=== PATIENT | male | born 1990 | race Caucasian/White ===

== ENCOUNTER → 2017-02-06 | Outpatient (CLI) | payer BC ==
[~2017-02-06] MED LIST: CETI10TA84 PO; ESCI10TA17 PO; FLUT0.15 NAE; ZNTT/150 PO
--- NOTE | 2017-02-06 17:35 | DIAGNOSTIC IMAGING REPORT ---
KUB CLINICAL HISTORY: Abdominal bloating. FINDINGS: 3 AP supine abdominal radiographs are obtained. No prior studies are available for comparison at the time of dictation. There is a nonobstructed abdominal bowel gas pattern. Mild colonic fecal retention is observed. There are no abnormal abdominal calcifications. The bony structures appear intact. IMPRESSION: Nonobstructed abdominal bowel gas pattern. Electronically signed by: Ritchie Franco M.D. 02/06/2017 5:33 PM Dictated Date/Time: 02/06/2017 5:30 PM
[2017-02-06 18:00] LABS: BASO % 0.4 %; BASO ABS # 0.03 K/uL (0-0.2); COMPLETE YES; HEMATOCRIT 46.4 % (42-52); IG% 0.1 %; LYMPH % 34.2 %; LYMPH ABS # 2.69 K/uL (1.2-3.4); MEAN CELL VOLUME 87.5 fL (80-100); MEAN CORPUSCULAR HEMOGLOBIN 29.2 pg (25-34); MEAN CORPUSCULAR HGB CONC 33.4 g/dl (32-36); MONO % 8.9 %; NEUT % 55.4 %; PLATELET COUNT 232 K/uL (130-400); WHITE BLOOD COUNT 7.87 K/uL (4.8-10.8)
[2017-02-06 18:04] LABS: URINE APPEARANCE CLEAR (CLEAR); URINE BILIRUBIN NEG (NEG); URINE COLOR YELLOW; URINE NITRITE NEG (NEG); URINE PH 6.5 (4.5-7.5); URINE SPECIFIC GRAVITY 1.034 (1.000-1.030); UROBILINOGEN NEG (NEG)
[2017-02-06 18:07] LABS: MANUAL MICROSCOPIC REQUIRED? NO; REVIEW REQ? NO
[2017-02-06 18:25] LABS: ALT/SGPT 89 U/L (12-78); AST/SGOT 30 U/L (15-37); BLOOD UREA NITROGEN 23 mg/dl (7-18); BUN/CREATININE RATIO 23.5 (10-20); CALCIUM 9.9 mg/dl (8.5-10.1); CARBON DIOXIDE 28 mmol/L (21-32); CHLORIDE 109 mmol/L (98-107); GLUCOSE 90 mg/dl (70-99); POTASSIUM 3.9 mmol/L (3.5-5.1); SODIUM 142 mmol/L (136-145)
[2017-02-06 18:27] LABS: ALB/GLOB RATIO 1.4 (0.9-2); ALKALINE PHOSPHATASE 73 U/L (45-117)
== END | disposition home or self-care (01) ==
LOC: C.LAB 17:01
PROVIDERS: ATTEND Nurse Practitioner
DX: R14.0 Abdominal distension (gaseous) (principal)

== ENCOUNTER 2017-02-16 19:00 | Emergency (ER) | payer BC ==
[~2017-02-16] VITALS: Ht 185.4 cm; Wt 124.7 kg
[~2017-02-16 19:00] MED LIST changes: -ESCI10TA17 PO; -ZNTT/150 PO
[2017-02-16 19:02] VITALS: TEMP 36.6; O2SAT 97; Ht 185.4 cm; Wt 124.7 kg
--- NOTE | 2017-02-16 19:25 | EMERGENCY ROOM VISIT NOTE ---
History Report prepared by Aguilaribchristina: Shaye Enriquez Under the Supervision of: Dr. Rakan Gonzales M.D. First contact with patient: 19:06 Chief Complaint: CHEST PAIN Stated Complaint: CHEST PAINS, GI ISSUES History of Present Illness The patient is a 27 year old male who presents to the Emergency Room with complaints of intermittent chest pain for the past day. He rates his discomfort as a 3/10 and describes it as feeling like an "ache". He has experienced some dizziness but denies any recent syncope or loss of consciousness. He also complains of GI issues reporting he was constipated last week, but has now been having diarrhea and experiencing bloating and a feeling of being "gassy'. The patient denies any recent fevers, cough or cold symptoms, nausea or vomiting. He notes he did have mono last fall and states his symptoms feel similar to the mono. He also admits he has been very fatigued recently. The patient denies any recent trauma or injury. He has not traveled recently or been on any long car trips. 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 Source of History: patient Onset: past day Position: chest Symptom Intensity: 3/10 Quality: ache Timing: other (intermittent) Associated Symptoms: + diarrhea, + fatigue, No LOC, No fevers, No cough ( cough or cold symptoms), No nausea, No vomiting Review of Systems See HPI for pertinent positives & negatives. A total of 10 systems reviewed and were otherwise negative. Past Medical & Surgical Medical Problems: (1) Kidney disease Old medical records were reviewed. Nurse's notes were reviewed and I agree with. Family History FH: diabetes mellitus FH: hypertension Social History Smoking Status: Never Smoker Alcohol Use: occasionally Drug Use: none Marital Status: Housing Status: lives with family Occupation Status: employed Current/Historical Medications No Active Prescriptions or Reported Meds Allergies Coded Allergies: No Known Allergies (Unverified , 02/16/17) Physical Exam Vital Signs Date Time Temp Pulse Resp B/P (MAP) Pulse Ox O2 Delivery O2 Flow Rate FiO2 02/16/17 21:35 85 20 02/16/17 21:30 146/90 02/16/17 21:05 78 23 02/16/17 21:00 82 22 131/85 02/16/17 20:30 78 20 136/89 02/16/17 20:00 90 20 136/90 02/16/17 19:31 135/99 02/16/17 19:30 92 22 02/16/17 19:12 94 02/16/17 19:11 169/100 02/16/17 19:02 36.6 97 18 147/83 97 Room Air Physical Exam General: The patient is a non-ill appearing young male. Well developed, well nourished in no acute distress, breathing comfortably on room air. Normal speech HEENT: Normal cephalic atraumatic. Pupils are equal round and reactive to light. Extraocular movements are intact. Oropharynx is pink with moist mucous membranes. No swelling of the mouth lips or tongue. Neck: Supple with a midline trachea. No meningeal signs or stiffness, no JVD or bruits. No Stridor. Chest: Mild reproducible tenderness in central chest. Clear to auscultation bilaterally. No wheezes or rhonchi. No increased work of breathing. Heart: regular rate and rhythm. Abdomen: Soft, nontender, nondistended without rebound guarding or rigidity. Extremities: No cyanosis clubbing or edema. No calf tenderness or assymetry Spine/Back. Non tender to palpation. No CVA tenderness Skin: Good turgor without rashes. Neurologic exam: Cranial nerves two through 12 are intact. Motor and sensation are intact and symmetrical throughout. Medical Decision & Procedures ER Provider Diagnostic Interpretation: Radiology results as stated below per my review and radiologist interpretation: CHEST ONE VIEW PORTABLE CLINICAL HISTORY: Atypical chest pain COMPARISON STUDY: May 18, 2016 FINDINGS: The cardiac and mediastinal contours are normal. There is no evidence of focal pulmonary consolidation. There is no evidence of failure. No pleural effusions are visualized. IMPRESSION: No active disease in the chest. Electronically signed by: Gentry Quiroga M.D. 02/16/2017 7:51 PM Laboratory Results 02/16/17 19:30 Red Blood Count 5.24, Mean Corpuscular Volume 86.3, Mean Corpuscular Hemoglobin 29.8, Mean Corpuscular Hemoglobin Concent 34.5, Mean Platelet Volume 10.7, Neutrophils (%) (Auto) 66.2, Lymphocytes (%) (Auto) 24.4, Monocytes (%) (Auto) 8.3, Eosinophils (%) (Auto) 0.7, Basophils (%) (Auto) 0.2, Neutrophils # (Auto) 6.26, Lymphocytes # (Auto) 2.31, Monocytes # (Auto) 0.79, Eosinophils # (Auto) 0.07, Basophils # (Auto) 0.02 02/16/17 19:30 Test 02/16/17 19:30 02/16/17 19:38 White Blood Count 9.47 K/uL (4.8-10.8) Red Blood Count 5.24 M/uL (4.7-6.1) Hemoglobin 15.6 g/dL (14.0-18.0) Hematocrit 45.2 % (42-52) Mean Corpuscular Volume 86.3 fL (80-100) Mean Corpuscular Hemoglobin 29.8 pg (25-34) Mean Corpuscular Hemoglobin Concent 34.5 g/dl (32-36) Platelet Count 251 K/uL (130-400) Mean Platelet Volume 10.7 fL (7.4-10.4) Neutrophils (%) (Auto) 66.2 % Lymphocytes (%) (Auto) 24.4 % Monocytes (%) (Auto) 8.3 % Eosinophils (%) (Auto) 0.7 % Basophils (%) (Auto) 0.2 % Neutrophils # (Auto) 6.26 K/uL (1.4-6.5) Lymphocytes # (Auto) 2.31 K/uL (1.2-3.4) Monocytes # (Auto) 0.79 K/uL (0.11-0.59) Eosinophils # (Auto) 0.07 K/uL (0-0.5) Basophils # (Auto) 0.02 K/uL (0-0.2) RDW Standard Deviation 40.7 fL (36.4-46.3) RDW Coefficient of Variation 12.9 % (11.5-14.5) Immature Granulocyte % (Auto) 0.2 % Immature Granulocyte # (Auto) 0.02 K/uL (0.00-0.02) Anion Gap 7.0 mmol/L (3-11) Est Creatinine Clear Calc Drug Dose 138.3 ml/min Estimated GFR () 105.3 Estimated GFR (Non- 90.9 BUN/Creatinine Ratio 19.9 (10-20) Calcium Level 10.1 mg/dl (8.5-10.1) Total Bilirubin 1.2 mg/dl (0.2-1) Direct Bilirubin 0.2 mg/dl (0-0.2) Aspartate Amino Transf (AST/SGOT) 22 U/L (15-37) Alanine Aminotransferase (ALT/SGPT) 89 U/L (12-78) Alkaline Phosphatase 73 U/L (45-117) Total Creatine Kinase 120 U/L (39-308) Creatine Kinase MB 0.8 ng/ml (0.5-3.6) Creatine Kinase MB Ratio 0.7 (0-3.0) Troponin I < 0.015 ng/ml (0-0.045) Total Protein 7.9 gm/dl (6.4-8.2) Albumin 4.8 gm/dl (3.4-5.0) Lipase 131 U/L (73-393) Thyroid Stimulating Hormone (TSH) 0.871 uIu/ml (0.300-4.500) Bedside D-Dimer 82 ng/mlFEU (0-450) Bedside Troponin I < 0.030 ng/ml (0-0.045) Laboratory studies as stated above per my review. ECG Indication: chest pain Rate (beats per minute): 95 Rhythm: normal sinus Findings: no acute ischemic change, no ectopy Comparison ECG Date: Compared to EKG from May 18, 2016, no significant change ED Course 1907: Past medical records reviewed. The patient was evaluated in room A11, and a complete history and physical examination were performed. 2144: I reevaluated the patient. He is feeling much better. I discussed his results and discharge instructions and he verbalized complete understanding and agreement. Medical Decision The differential diagnoses considered includes cardiac disease, arrhythmia, musculoskeletal pain, viral illness, anxiety, PE, pneumothorax. This patient comes in as described above he's been having some vague chest pain. He has had some abdominal issues around on for several weeks. He's been seen by his regular doctor feels bloated at times. His abdomen is benign. He said that he just wanted to get his chest checked out tonight. He looks well on exam and stable vital signs. EKG shows no acute ischemic changes or ectopy and troponin was normal. I think his symptoms are very atypical for cardiac disease. Chest x-ray does not show congestive heart failure, pneumonia, or pneumothorax. D-dimer is within normal limits and in a low pretest probability study makes PE highly unlikely. He has no acute electrolyte or metabolic abnormalities. He is feeling better as remains stable . He will be discharged home. I encouraged follows regular doctor and return if: increasing pain, worsening of symptoms, fever or chills, any new problems concerns. Medication Reconcilliation Current Medication List: was personally reviewed by me Blood Pressure Screening Patient's blood pressure: Normal blood pressure Blood pressure disposition: Did not require urgent referral Impression Primary Impression: Precordial chest pain Scribe Attestation The scribe's documentation has been prepared under my direction and personally reviewed by me in its entirety. I confirm that the note above accurately reflects all work, treatment, procedures, and medical decision making performed by me. Departure Information Dispostion Home / Self-Care Prescriptions No Active Prescriptions or Reported Meds Referrals Larry Duran III, CRNP (PCP) Patient Instructions My [facility] Additional Instructions Rest. Drink plenty of fluids. May use ibuprofen 400 mg every 6 hours, take with food Return if: Increasing pain, shortness of breath, worsening symptoms, fever or chills, any new problems concerns Follow-up with your doctor either tomorrow or early next week for recheck.
[2017-02-16 19:43] LABS: BASO % 0.2 %; BASO ABS # 0.02 K/uL (0-0.2); COMPLETE YES; EOS % 0.7 %; HEMATOCRIT 45.2 % (42-52); IG% 0.2 %; LYMPH % 24.4 %; LYMPH ABS # 2.31 K/uL (1.2-3.4); MEAN CELL VOLUME 86.3 fL (80-100); MEAN CORPUSCULAR HEMOGLOBIN 29.8 pg (25-34); MEAN CORPUSCULAR HGB CONC 34.5 g/dl (32-36); MEAN PLATELET VOLUME 10.7 fL (7.4-10.4); MONO % 8.3 %; NEUT % 66.2 %; PLATELET COUNT 251 K/uL (130-400); RED BLOOD COUNT 5.24 M/uL (4.7-6.1); WHITE BLOOD COUNT 9.47 K/uL (4.8-10.8)
--- NOTE | 2017-02-16 19:52 | DIAGNOSTIC IMAGING REPORT ---
CHEST ONE VIEW PORTABLE CLINICAL HISTORY: Atypical chest pain COMPARISON STUDY: May 18, 2016 FINDINGS: The cardiac and mediastinal contours are normal. There is no evidence of focal pulmonary consolidation. There is no evidence of failure. No pleural effusions are visualized.[ IMPRESSION: No active disease in the chest. Electronically signed by: Gentry Quiroga M.D. 02/16/2017 7:51 PM Dictated Date/Time: 02/16/2017 7:50 PM
[2017-02-16 19:57] LABS: POINT OF CARE TROPONIN I < 0.030 ng/ml (0-0.045)
[2017-02-16 20:00] LABS: ALT/SGPT 89 U/L (12-78); AST/SGOT 22 U/L (15-37); BLOOD UREA NITROGEN 22 mg/dl (7-18); BUN/CREATININE RATIO 19.9 (10-20); CALCIUM 10.1 mg/dl (8.5-10.1); CARBON DIOXIDE 25 mmol/L (21-32); CHLORIDE 107 mmol/L (98-107); GLUCOSE 95 mg/dl (70-99); POTASSIUM 3.7 mmol/L (3.5-5.1); SODIUM 139 mmol/L (136-145)
[2017-02-16 20:11] LABS: ALKALINE PHOSPHATASE 73 U/L (45-117); CKMB/CK RATIO 0.7 (0-3.0); THYROID STIMULATING HORMONE 0.871 uIu/ml (0.300-4.500)
[2017-02-16 21:30] VITALS: BP 146/90
[2017-02-16 21:35] VITALS: PULSE 85
== END 2017-02-16 21:50 | disposition home or self-care (01) ==
LOC: C.EDB 19:01 → C.EDA 21:50
DX: R07.2 Precordial pain (principal); N18.9 Chronic kidney disease, unspecified; Z83.3 Family history of diabetes mellitus; Z82.49 Family history of ischemic heart disease and other diseases of the circulatory system

== ENCOUNTER → 2017-04-06 | Outpatient (CLI) | payer BC ==
[~2017-04-06] MED LIST changes: -CETI10TA84 PO; +ESCI10TA17 PO; -FLUT0.15 NAE; +ZNTT/150 PO
--- NOTE | 2017-04-06 07:19 | DIAGNOSTIC IMAGING REPORT ---
GALLBLADDER-ABD LIMITED CLINICAL HISTORY: R10.13 Acute epigastric [id number] pain TECHNIQUE: Ultrasound COMPARISON STUDY: None FINDINGS: Normal gallbladder. No shadowing gallstones. Common bile duct 4 mm. Liver is uniform throughout. Pancreas and right kidney are unremarkable. Right kidney is negative for hydronephrosis. IMPRESSION: Negative study The above report was generated using voice recognition software. It may contain grammatical, syntax or spelling errors. Electronically signed by: Johnathan Duran M.D. 04/06/2017 7:18 AM Dictated Date/Time: 04/06/2017 7:16 AM
== END | disposition home or self-care (01) ==
LOC: C.ULTR 06:26
PROVIDERS: ATTEND Nurse Practitioner Family
DX: R10.13 Epigastric pain (principal)

== ENCOUNTER 2017-04-08 13:52 | Emergency (ER) | payer BC ==
[~2017-04-08] VITALS: Ht 185.4 cm; Wt 118.3 kg
[2017-04-08 13:55] VITALS: TEMP 36.7; Ht 185.4 cm; Wt 118.3 kg
--- NOTE | 2017-04-08 14:09 | EMERGENCY ROOM VISIT NOTE ---
History Report prepared by Aguilaribe: Shaye Enriquez Under the Supervision of: Dr. Pedro Agustin D.O. First contact with patient: 14:01 Chief Complaint: OTHER COMPLAINT Stated Complaint: CHEST & SHOULDER PAIN - LIGHTHEADED History of Present Illness The patient is a 27 year old male who presents to the Emergency Room with complaints of intermittent chest pain for the past several weeks. This morning, he was hanging out with friends when he started experiencing the pain again. He also felt short of breath, lightheaded and experienced heart palpitations. The patient reports he saw a head of drama and had a stress test and Holter monitor recently that showed an abnormal heart beat. The patient also complains of a swollen vein behind his right knee. He denies any recent nausea or vomiting but has experienced some abdominal pain. 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 A total of 10 systems reviewed and were otherwise negative. Past Medical & Surgical Medical Problems: (1) Kidney disease Surgical Problems: (1) History of tonsillectomy Family History FH: diabetes mellitus FH: hypertension Social History Smoking Status: Never Smoker Alcohol Use: occasionally Drug Use: none Marital Status: Housing Status: lives with family Occupation Status: employed Current/Historical Medications Scheduled Escitalopram (Lexapro), 10 MG PO DAILY Ranitidine HCl (Zantac), 150 MG PO BID Allergies Coded Allergies: No Known Allergies (Unverified , 02/16/17) Physical Exam Vital Signs Date Time Temp Pulse Resp B/P (MAP) Pulse Ox O2 Delivery O2 Flow Rate FiO2 04/08/17 16:34 78 18 126/82 98 04/08/17 15:45 89 16 144/69 98 Room Air 04/08/17 14:10 77 04/08/17 13:55 36.7 82 18 141/90 97 Room Air Physical Exam GENERAL: Patient is awake, alert, in no acute distress, patient is resting comfortably and showing no signs of anxiety EYES: The conjunctivae are clear. The pupils are round and reactive. EARS, NOSE, MOUTH AND THROAT: The nose is without any evidence of any deformity. Mucous membranes are moist tongue is midline NECK: The neck is nontender and supple. RESPIRATORY: Normal respiratory effort is noted there is no evidence of wheezing rhonchi or rales CARDIOVASCULAR: Regular rate and rhythm noted there no murmurs rubs or gallops normal S1 normal S2 GASTROINTESTINAL: The abdomen is soft. Bowel sounds are present in all quadrants. Abdomen is nontender MUSCULOSKELETAL/EXTREMITIES: There is no evidence of gross deformity full range of motion is noted in the hips and shoulders SKIN: There is no obvious evidence of any rash. There are no petechiae, pallor or cyanosis noted. NEUROLOGIC: Patient is awake alert and oriented x3 Medical Decision & Procedures ER Provider Diagnostic Interpretation: Radiology results as stated below per my review and radiologist interpretation: CHEST ONE VIEW PORTABLE HISTORY: Right-sided chest pain. COMPARISON: Chest 02/16/2017. FINDINGS: The lungs are clear. Cardiac silhouette is normal in size. No pleural effusions. No pneumothorax. IMPRESSION: No acute process. Electronically signed by: Jeevan Sanchez M.D. 04/08/2017 2:29 PM RIGHT LOWER EXTREMITY VENOUS DOPPLER HISTORY: right leg pain COMPARISON STUDY: None. FINDINGS: There is normal compressibility, flow, and augmentation within the right lower extremity deep venous system. IMPRESSION: No DVT within the right lower extremity Electronically signed by: Jeevan Sanchez M.D. 04/08/2017 3:03 PM Laboratory Results 04/08/17 14:15 Red Blood Count 5.49, Mean Corpuscular Volume 86.2, Mean Corpuscular Hemoglobin 28.8, Mean Corpuscular Hemoglobin Concent 33.4, Mean Platelet Volume 10.8, Neutrophils (%) (Auto) 61.5, Lymphocytes (%) (Auto) 26.7, Monocytes (%) (Auto) 10.7, Eosinophils (%) (Auto) 0.5, Basophils (%) (Auto) 0.3, Neutrophils # (Auto ) 4.55, Lymphocytes # (Auto) 1.97, Monocytes # (Auto) 0.79, Eosinophils # (Auto ) 0.04, Basophils # (Auto) 0.02 04/08/17 14:15 Test 04/08/17 14:15 04/08/17 14:23 04/08/17 14:30 White Blood Count 7.39 K/uL (4.8-10.8) Red Blood Count 5.49 M/uL (4.7-6.1) Hemoglobin 15.8 g/dL (14.0-18.0) Hematocrit 47.3 % (42-52) Mean Corpuscular Volume 86.2 fL (80-100) Mean Corpuscular Hemoglobin 28.8 pg (25-34) Mean Corpuscular Hemoglobin Concent 33.4 g/dl (32-36) Platelet Count 277 K/uL (130-400) Mean Platelet Volume 10.8 fL (7.4-10.4) Neutrophils (%) (Auto) 61.5 % Lymphocytes (%) (Auto) 26.7 % Monocytes (%) (Auto) 10.7 % Eosinophils (%) (Auto) 0.5 % Basophils (%) (Auto) 0.3 % Neutrophils # (Auto) 4.55 K/uL (1.4-6.5) Lymphocytes # (Auto) 1.97 K/uL (1.2-3.4) Monocytes # (Auto) 0.79 K/uL (0.11-0.59) Eosinophils # (Auto) 0.04 K/uL (0-0.5) Basophils # (Auto) 0.02 K/uL (0-0.2) RDW Standard Deviation 40.3 fL (36.4-46.3) RDW Coefficient of Variation 12.7 % (11.5-14.5) Immature Granulocyte % (Auto) 0.3 % Immature Granulocyte # (Auto) 0.02 K/uL (0.00-0.02) Prothrombin Time 11.4 SECONDS (9.0-12.0) Prothromb Time International Ratio 1.1 (0.9-1.1) Activated Partial Thromboplast Time 34.5 SECONDS (21.0-31.0) Partial Thromboplastin Ratio 1.3 Anion Gap 9.0 mmol/L (3-11) Est Creatinine Clear Calc Drug Dose 164.6 ml/min Estimated GFR () 134.2 Estimated GFR (Non- 115.8 BUN/Creatinine Ratio 20.6 (10-20) Calcium Level 10.5 mg/dl (8.5-10.1) Total Bilirubin 1.8 mg/dl (0.2-1) Direct Bilirubin 0.3 mg/dl (0-0.2) Aspartate Amino Transf (AST/SGOT) 22 U/L (15-37) Alanine Aminotransferase (ALT/SGPT) 60 U/L (12-78) Alkaline Phosphatase 81 U/L (45-117) Total Creatine Kinase 148 U/L (39-308) Creatine Kinase MB 0.5 ng/ml (0.5-3.6) Creatine Kinase MB Ratio 0.3 (0-3.0) Troponin I < 0.015 ng/ml (0-0.045) Total Protein 8.3 gm/dl (6.4-8.2) Albumin 4.7 gm/dl (3.4-5.0) Lipase 112 U/L (73-393) Bedside D-Dimer 135 ng/mlFEU (0-450) Urine Color DK YELLOW Urine Appearance CLEAR (CLEAR) Urine pH 5.5 (4.5-7.5) Urine Specific [place] 1.028 (1.000-1.030) Urine Protein NEG (NEG) Urine Glucose (UA) NEG (NEG) Urine Ketones 1+ (NEG) Urine Occult Blood NEG (NEG) Urine Nitrite NEG (NEG) Urine Bilirubin NEG (NEG) Urine Urobilinogen NEG (NEG) Urine Leukocyte Esterase NEG (NEG) Laboratory results per my review. Medications Administered Medications (Trade) Dose Ordered Sig/Saad Route Start Time Stop Time Status Last Admin Dose Admin Sodium Chloride 1,000 ml @ 999 mls/hr Q1H1M STAT IV 04/08/17 15:01 04/08/17 16:01 DC 04/08/17 15:47 999 MLS/HR ECG Indication: chest pain Rate (beats per minute): 82 Rhythm: normal sinus Findings: no ectopy, other (No acute ST segments) ED Course 1403: The patient was evaluated in room A12B. A complete history and physical examination were performed. 1501: NSS 1000 ml @ 999 mls/hr IV. 1620: I reevaluated the patient. He is feeling well and resting comfortably. I discussed his results and discharge instructions and he verbalized complete understanding and agreement. Medical Decision Prior records/ancillary studies reviewed. Triage Nursing notes reviewed. The patient's history was concerning for chest pain. Differential diagnosis: Etiologies such as cardiac ischemia, aortic dissection, pulmonary embolism, pneumonia, pneumothorax, musculoskeletal, infections, pericarditis, myocarditis , esophageal rupture, gastrointestinal, as well as others were entertained. The patient is a 27-year-old male who presented to the emergency department for evaluation of palpitations and right-sided chest pain. The patient has had multiple visits to our emergency department for this and has also seen a head of drama and had a workup as an outpatient. The patient was found have some degree of dehydration and was treated with IV fluids. He was also having PVCs which were symptomatic. I do feel this is the sensation the patient is describing. He was encouraged to rest and avoid any strenuous activity. He was also encouraged to continue all medications as prescribed. His blood pressure was mildly elevated in the emergency department. I'm unsure if he could benefit from a beta refugio which may improve his symptoms of the PVCs but he says his blood pressures normally in a normal range and starting a blood pressure medication at this time might be inadvisable. He was encouraged to follow-up with his doctor soon as possible return to emergency department immediately worsen or if the need arises. Medication Reconcilliation Current Medication List: was personally reviewed by me Blood Pressure Screening Patient's blood pressure: Elevated blood pressure Blood pressure disposition: Referred to PCP Impression Primary Impression: Right-sided chest pain Additional Impressions: PVC (premature ventricular contraction) Dehydration Palpitations Scribe Attestation The scribe's documentation has been prepared under my direction and personally reviewed by me in its entirety. I confirm that the note above accurately reflects all work, treatment, procedures, and medical decision making performed by me. Departure Information Dispostion Home / Self-Care Referrals Larry Duran III, CRNP (PCP) Patient Instructions ED Chest Pain Atypical [place] Cause, My [facility], Premature Ventricular Contract About Additional Instructions Call your family to schedule follow-up appointment. Continue all medications as prescribed. Drink plenty clear liquids. Avoid any strenuous activity. Continue your outpatient workup as scheduled. Return to the emergency department if symptoms worsen or need arises. Problem Qualifiers
[2017-04-08 14:30] LABS: BASO % 0.3 %; BASO ABS # 0.02 K/uL (0-0.2); COMPLETE YES; EOS % 0.5 %; HEMATOCRIT 47.3 % (42-52); IG% 0.3 %; LYMPH % 26.7 %; LYMPH ABS # 1.97 K/uL (1.2-3.4); MEAN CELL VOLUME 86.2 fL (80-100); MEAN CORPUSCULAR HEMOGLOBIN 28.8 pg (25-34); MEAN CORPUSCULAR HGB CONC 33.4 g/dl (32-36); MEAN PLATELET VOLUME 10.8 fL (7.4-10.4); MONO % 10.7 %; NEUT % 61.5 %; PLATELET COUNT 277 K/uL (130-400); RED BLOOD COUNT 5.49 M/uL (4.7-6.1); WHITE BLOOD COUNT 7.39 K/uL (4.8-10.8)
--- NOTE | 2017-04-08 14:30 | DIAGNOSTIC IMAGING REPORT ---
CHEST ONE VIEW PORTABLE HISTORY: Right-sided chest pain. COMPARISON: Chest 02/16/2017. FINDINGS: The lungs are clear. Cardiac silhouette is normal in size. No pleural effusions. No pneumothorax. IMPRESSION: No acute process. Electronically signed by: Jeevan Sanchez M.D. 04/08/2017 2:29 PM Dictated Date/Time: 04/08/2017 2:27 PM
[2017-04-08 14:46] LABS: ALT/SGPT 60 U/L (12-78); BLOOD UREA NITROGEN 19 mg/dl (7-18); BUN/CREATININE RATIO 20.6 (10-20); CALCIUM 10.5 mg/dl (8.5-10.1); CARBON DIOXIDE 23 mmol/L (21-32); CHLORIDE 106 mmol/L (98-107); GLUCOSE 85 mg/dl (70-99); POTASSIUM 3.7 mmol/L (3.5-5.1); SODIUM 138 mmol/L (136-145)
[2017-04-08 14:51] LABS: ALKALINE PHOSPHATASE 81 U/L (45-117); AST/SGOT 22 U/L (15-37); CKMB/CK RATIO 0.3 (0-3.0)
[2017-04-08 14:53] LABS: URINE APPEARANCE CLEAR (CLEAR); URINE BILIRUBIN NEG (NEG); URINE COLOR DK YELLOW; URINE NITRITE NEG (NEG); URINE PH 5.5 (4.5-7.5); URINE SPECIFIC GRAVITY 1.028 (1.000-1.030); UROBILINOGEN NEG (NEG)
[2017-04-08 14:55] LABS: INR 1.1 (0.9-1.1); PARTIAL THROMBOPLASTIN RATIO 1.3; PROTHROMBIN TIME (PATIENT) 11.4 SECONDS (9.0-12.0)
[2017-04-08 14:58] LABS: MANUAL MICROSCOPIC REQUIRED? NO; REVIEW REQ? NO
[2017-04-08] MEDS ORDERED: SODIUM CHLORIDE 0.9% 1000ML 1,000 ML IV STA (15:01)
--- NOTE | 2017-04-08 15:04 | DIAGNOSTIC IMAGING REPORT ---
RIGHT LOWER EXTREMITY VENOUS DOPPLER HISTORY: right leg pain COMPARISON STUDY: None. FINDINGS: There is normal compressibility, flow, and augmentation within the right lower extremity deep venous system. IMPRESSION: No DVT within the right lower extremity Electronically signed by: Jeevan Sanchez M.D. 04/08/2017 3:03 PM Dictated Date/Time: 04/08/2017 3:02 PM
[2017-04-08] MEDS ORDERED: ZNTT/150 PO (15:26)
[2017-04-08] MEDS ORDERED: ESCI10TA17 PO (15:26)
[2017-04-08 16:34] VITALS: BP 126/82; PULSE 78; O2SAT 98
== END 2017-04-08 16:35 | disposition home or self-care (01) ==
LOC: C.EDB 13:54 → C.EDA 16:35
DX: I49.1 Atrial premature depolarization (principal); E86.0 Dehydration; R00.2 Palpitations; N18.9 Chronic kidney disease, unspecified; Z79.899 Other long term (current) drug therapy; Z98.890 Other specified postprocedural states; Z83.3 Family history of diabetes mellitus; Z82.49 Family history of ischemic heart disease and other diseases of the circulatory system

== ENCOUNTER → 2017-04-14 | Outpatient (CLI) | payer BC ==
[~2017-04-14] MED LIST changes: +SINCALIDE INJ 2.4 MCG in SODIUM CHLORIDE 0.9% 100ML 100 ML IV ONE
--- NOTE | 2017-04-14 10:13 | DIAGNOSTIC IMAGING REPORT ---
NUCLEAR MEDICINE HEPATOBILIARY SCAN WITH EJECTION FRACTION HISTORY: R10.13 Acute epigastric pain [id number] COMPARISON: Abdominal ultrasound 04/06/2017. TECHNIQUE: Immediately following the intravenous administration of 5.3 mCi Tc-99m Choletec, dynamic anterior abdominal imaging pre/post 2.4 mcg of Kinevac was performed. FINDINGS: Uniform hepatic tracer accumulation is shown. Prompt intrahepatic biliary excretion is seen. The gallbladder, common bile duct, and small bowel are all visualized by 52 minutes. This appearance represents the normal sequence of biliary excretion. The gall bladder ejection fraction following administration of Kinevac was 60% (normal >35%). IMPRESSION: 1. No evidence for cystic duct obstruction. 2. Gallbladder ejection fraction calculated to be 60 %. Electronically signed by: Jeevan Sanchez M.D. 04/14/2017 10:12 AM Dictated Date/Time: 04/14/2017 10:07 AM
== END | disposition home or self-care (01) ==
LOC: C.NUCL 06:53
PROVIDERS: ATTEND Nurse Practitioner Family
DX: R10.13 Epigastric pain (principal)

== ENCOUNTER → 2017-08-01 | Outpatient (CLI) | payer OTHER ==
[~2017-08-01] MED LIST changes: -SINCALIDE INJ 2.4 MCG in SODIUM CHLORIDE 0.9% 100ML 100 ML IV ONE
--- NOTE | 2017-08-01 09:34 | DIAGNOSTIC IMAGING REPORT ---
ORBITS FOR MRI HISTORY: 27 years-old Male MRI SCREENING screening study for MRI. History of prior metal work. COMPARISON: Head CT 05/18/2016 TECHNIQUE: 3 views of the orbits FINDINGS: No opaque foreign bodies identified. No facial bone fracture or dislocation. Orbits are unremarkable. The paranasal sinuses appear symmetric and well aerated. IMPRESSION: No opaque foreign body. The above report was generated using voice recognition software. It may contain grammatical, syntax or spelling errors. Electronically signed by: Eliseo Robles M.D. 08/01/2017 9:33 AM Dictated Date/Time: 08/01/2017 9:32 AM
--- NOTE | 2017-08-01 10:33 | DIAGNOSTIC IMAGING REPORT ---
LEFT HINDFOOT MRI HISTORY: Left heel pain. TECHNIQUE: Multiplanar multisequence MRI of the left-was performed without the use of intravenous contrast. COMPARISON STUDY: None. FINDINGS: Tiny plantar and posterior calcaneal spurs. Normal marrow signal intensity within the visualized osseous structures. No acute fracture or dislocation within the left ankle/hindfoot. Small amount of increased signal within the proximal peroneus longus tendon consistent with a mild tendinopathy. The flexor, extensor, and Achilles tendon are normal in course, caliber, and signal intensity. Mild cartilage thinning at the tibiotalar joint. The sinus tarsi is intact. The medial stabilizing ligaments are intact. The anterior talofibular ligament is not identified and is likely chronically torn. The calcaneofibular and posterior talofibular ligaments are irregular and may also represent a chronic partial tear. The plantar fascia is intact. There is a well-corticated ossific density at the distal tip of the fibula which measures 1.2 cm. This likely represents an old avulsion fracture and is nonunited. IMPRESSION: 1. 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 2. Chronic tears involving the lateral stabilizing ligaments as described above. 3. Mild peroneus longus tendinopathy. 4. No abnormality within the calcaneus. 5. Mild cartilage space narrowing at the tibiotalar joint. Electronically signed by: Jeevan Sanchez M.D. 08/01/2017 10:32 AM Dictated Date/Time: 08/01/2017 10:24 AM
--- NOTE | 2017-08-01 10:46 | DIAGNOSTIC IMAGING REPORT ---
R LOWER EXT NONJOINT W/O CLINICAL HISTORY: 27 years-old Male with RT LT HEAL PAIN. Acute right heel pain COMPARISON: None. TECHNIQUE: Multiplanar, multi sequence MRI of the right hindfoot was performed without contrast. FINDINGS: LATERAL LIGAMENT COMPLEX: The anterior talofibular ligament is chronically torn as seen on image 14 series 8. There are multiple corticated bone fragments within the distribution of the distal fibula and lateral talus and expected region of the anterior talofibular ligament suggesting remote avulsion fractures. No associated edema within this distribution. The calcaneofibular ligament is also thickened with intermediate T2 signal suggesting chronic sprain. 9 mm corticated bone fragment is noted along the posterior talus and expected region of the posterior talofibular ligament which is also chronically torn. SYNDESMOTIC LIGAMENTS: The anterior-inferior tibiofibular ligament is thickened with intermediate T2 signal is noted image 9 series 9 suggesting chronic sprain. The interosseous membrane and posterior-inferior tibiofibular ligaments are intact. DELTOID LIGAMENT COMPLEX: The superficial and deep components of the deltoid ligament are intact. ANTERIOR TENDONS: The tibialis anterior, extensor hallucis longus and extensor digitorum longus tendons are normal in position, morphology and signal. LATERAL TENDONS: The peroneus longus tendon demonstrates moderate tendinosis. The peroneus brevis tendon demonstrates a short segment split tear for approximately 1.4 cm as seen on images 16 through 18 of series 9. MEDIAL TENDONS: The posterior tibialis, flexor digitorum longus and flexor hallucis longus tendons are intact. PLANTAR FASCIA: The medial and lateral bundles of the plantar fascia are normal in morphology and signal. There is no evidence of acute plantar fasciitis or tear. No evidence of plantar fascial nodules. ACHILLES TENDON: The Achilles tendon is normal in position, morphology and signal. No associated bursitis. SINUS TARSI: There is normal fat signal within the sinus tarsi. The interosseous and cervical ligaments are normal. The navicular-calcaneal (spring) ligament is without acute abnormality. TARSAL TUNNEL: There are no obstructing lesions within the tarsal tunnel. BONE MARROW: Bone marrow is normal in signal without evidence of fracture, marrow contusion or marrow occupying lesion. Small plantar and Achilles enthesophytes. IMPRESSION: 1. Short segment likely chronic appearing split tear of the peroneus brevis tendon along its inframalleolar coarse. Moderate tendinosis of the peroneus longus without discrete tear. 2. Small plantar and Achilles enthesophytes about the calcaneus. 3. Multiple corticated bone fragments about the lateral malleolus and lateral talus compatible with remote avulsion fractures. Additionally, there are chronic tears of the anterior and posterior talofibular ligaments with chronic sprain of the calcaneal fibular ligament. 4. Chronic sprain of the anteroinferior tibiofibular ligament. 5. No acute fracture or focal bone marrow edema. The above report was generated using voice recognition software. It may contain grammatical, syntax or spelling errors. Electronically signed by: Eliseo Robles M.D. 08/01/2017 10:45 AM Dictated Date/Time: 08/01/2017 10:15 AM
== END | disposition home or self-care (01) ==
LOC: C.MRI 09:11
PROVIDERS: ATTEND Orthopaedic Surgery Sports Medicine
DX: M79.672 Pain in left foot (principal); S82.832A Other fracture of upper and lower end of left fibula, initial encounter for closed fracture; S93.402A Sprain of unspecified ligament of left ankle, initial encounter; S86.311A Strain of muscle(s) and tendon(s) of peroneal muscle group at lower leg level, right leg, initial encounter; M76.71 Peroneal tendinitis, right leg; M77.31 Calcaneal spur, right foot; S93.431A Sprain of tibiofibular ligament of right ankle, initial encounter; S93.411A Sprain of calcaneofibular ligament of right ankle, initial encounter; X58.XXXA Exposure to other specified factors, initial encounter

== ENCOUNTER 2017-08-25 04:49 | Day surgery (SDC) | payer OTHER ==
[2017-08-24 10:57] VITALS: BMI 33.0
[~2017-08-25] VITALS: Ht 185.4 cm; Wt 115.9 kg
[~2017-08-25 04:49] MED LIST changes: +ACET-1256 PO; -ESCI10TA17 PO; +IBUP-1050 PO; +MULT-506 PO; -ZNTT/150 PO
[2017-08-25 05:39] VITALS: BP 139/78; PULSE 82; TEMP 36.6; O2SAT 98; Ht 185.4 cm; Wt 115.9 kg
[2017-08-25] MEDS ORDERED: LACTATED RINGER'S 1000ML 1,000 ML IV SCH (06:00)
--- NOTE | 2017-08-25 06:35 | History & Physical Bridge Note ---
H&P Re-Evaluation Bridge Note: I have examined the patient, reviewed the History & Physical and in the interval since the performance of the History & Physical I have noted the following changes of clinical significance: No changes noted
[2017-08-25] MEDS ORDERED: ULT/50 PO (07:03)
--- NOTE | 2017-08-25 07:05 | Discharge Instructions ---
Discharge Instructions Date of Service Aug 25, 2017. Visit Reason for Visit: Mediastinal Adenopathy Discharge Discharge Diagnosis / Problem: Mediastinal Adenopathy Discharge Goals Goal(s): Learn about illness Activity Recommendations Activity Limitations: as noted below 1. Do not drive if taking ultram. 2. Do not drive for 2 days. 3. You may remove dressing in 3 days and shower thereafter. No tub baths. Anesthesia . Post Anesthesia Instructions: If you have had General Anesthesia or IV Sedation: * Do not drive today. * Resume driving when surgeon permits. * Do not make important decisions or sign legal documents today. * Call surgeon for: 1. Temperature elevations greater than 101 degrees F. 2. Uncontrollable pain. 3. Excessive bleeding. 4. Persistent nausea and vomiting. 5. Medication intolerance (nausea, vomiting or rash). * For nausea and vomiting use only clear liquids such as: tea, soda, bouillon until nausea subsides, then gradually increase diet as tolerated. * If you have any concerns or questions, call your surgeon's office. If physician is unavailable and it is an emergency, call 911 or go to the nearest emergency room. . Instructions / Follow-Up Instructions / Follow-Up 1. Keep your scheduled appointment with Dr. Davila on September 04, 2017 @ 9: 45. Diet Recommendations Recommended Home Diet: resume previous diet Pending Studies Studies pending at discharge: no Medical Emergencies . Who to Call and When: Medical Emergencies: If at any time you feel your situation is an emergency, please call 911 immediately. . Non-Emergent Contact Non-Emergency issues call your: Surgeon Call Non-Emergent contact if: you have a fever, your pain is not controlled, wound has increased drainage . . "Provider Documentation" section prepared by Bryce Velazco. .
[2017-08-25] MEDS ORDERED: FENTANYL CITRATE INJ 50 MCG/1 ML 2 ML VIAL ONE ×2 (07:09→07:42)
[2017-08-25] MEDS ORDERED: MIDAZOLAM HCL 1 MG/ML 2ML VIAL ONE (07:10)
[2017-08-25] MEDS ORDERED: BUPIVACAINE LIPOSOME 1/3% 266 MG/20 ML VIAL INFIL ONE (07:27)
[2017-08-25] MEDS ORDERED: BUPIVACAINE 0.5 % 5 MG/1 ML MPF 30ML VIAL ONE (07:27)
[2017-08-25] MEDS ORDERED: PROPOFOL IV EMULSION 10 MG/ML 20 ML VIAL IV ONE (07:35)
[2017-08-25] MEDS ORDERED: LIDOCAINE HCL 2% 2 ML VIAL (20MG/ML) ONE (07:35)
[2017-08-25] MEDS ORDERED: ONDANSETRON INJ 2 MG/ML 2 ML VIAL ONE (07:35)
[2017-08-25] MEDS ORDERED: DEXAMETHASONE SOD INJ 4 MG/ML VIAL ONE (07:35)
[2017-08-25] MEDS ORDERED: LARYING-O-JET KIT (LTA) ONE (07:35)
[2017-08-25] MEDS ORDERED: ROCURONIUM BROMIDE 10 MG/ML 5 ML VIAL IV ONE (07:35)
[2017-08-25] MEDS ORDERED: CEFAZOLIN SOD 1 GM VIAL ONE (07:36)
[2017-08-25] MEDS ORDERED: LABETALOL HCL IV 5 MG/ML 20ML IV PRN (08:00)
[2017-08-25] MEDS ORDERED: ONDANSETRON INJ 2 MG/ML 2 ML VIAL IV PRN (08:00)
[2017-08-25] MEDS ORDERED: KETOROLAC TROMETHAMINE 30 MG/ML VIAL IV. PRN (08:00)
[2017-08-25] MEDS ORDERED: ATROPINE SULFATE 0.1 MG/ML 5ML SYR IV PRN (08:00)
[2017-08-25] MEDS ORDERED: NEOSTIGMINE METHYLSULFATE 5 MG/5 ML SYR ONE (08:12)
[2017-08-25] MEDS ORDERED: GLYCOPYRROLATE INJ 0.2 MG/ML VIAL ONE (08:12)
[2017-08-25] MEDS ORDERED: MoRPHine SULFATE 2 MG/ML CARP IV PRN (08:15)
[2017-08-25] MEDS ORDERED: TRAMADOL HCL 50 MG TAB PO PRN (08:15)
--- NOTE | 2017-08-25 08:23 | [facility] Post Operative Brief Note ---
Immediate Operative Summary Operative Date Aug 25, 2017. Pre-Operative Diagnosis Mediastinal lymphadenopathy Post-Operative Diagnosis Non necrotizing granulomas Procedure(s) Performed Video mediastinoscopy with biopsy and culture Surgeon Dr. Davila Supervisor Receiving And Processing Surgeon(s) none Estimated Blood Loss 3 cc Findings Consistent with Post-Op Diagnosis Specimens FS #1: R4 lymph node - out to lab at 0755 FS #2: R2 lymph node - out to lab at 0755 Culture of R4 lymph node sent for fungal/AFB Permanent, fresh specimen: A: R4 lymph node B: Level 7 lymph nodes Anesthesia Type General
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
[2017-08-25] MEDS: FENTANYL CITRATE INJ 50 MCG/1 ML 2 ML VIAL IV PRN ×2 (09:00→09:05)
--- NOTE | 2017-08-25 09:15 | DIAGNOSTIC IMAGING REPORT ---
CHEST ONE VIEW PORTABLE CLINICAL HISTORY: mediastinoscopy COMPARISON STUDY: 04/08/2017 FINDINGS: The heart is the upper limits of normal in size. There is mild right paratracheal and bilateral hilar prominence. This likely represents adenopathy. There is no pneumothorax. There is no focal pulmonary consolidation. There are no pleural effusions.[ IMPRESSION: 1. Suspected right paratracheal and hilar adenopathy 2. No evidence of pneumothorax Electronically signed by: Gentry Quiroga M.D. 08/25/2017 9:14 AM Dictated Date/Time: 08/25/2017 9:12 AM
[2017-08-25 09:30] VITALS: BP 158/68; PULSE 84; TEMP 36.6; O2SAT 96
[2017-08-25 10:00] VITALS: BP 143/75; PULSE 80; TEMP 36.5; O2SAT 95
--- NOTE | 2017-08-25 10:48 | Anesthesiology Progress Note ---
Anesthesia Post Op Note Date & Time Aug 25, 2017 at 10:47 Vital Signs Pain Intensity: 2 Vital Signs Past 12 Hours Date Time Temp Pulse Resp B/P (MAP) Pulse Ox O2 Delivery O2 Flow Rate FiO2 08/25/17 10:00 36.5 80 18 143/75 95 Room Air 08/25/17 09:30 36.6 84 18 158/68 96 Room Air 08/25/17 09:18 96 22 94 08/25/17 09:18 36.8 90 22 08/25/17 09:16 150/86 08/25/17 09:13 80 17 97 08/25/17 09:13 84 17 08/25/17 09:11 139/82 08/25/17 09:08 82 21 96 08/25/17 09:08 82 21 08/25/17 09:06 139/79 08/25/17 09:03 80 16 97 08/25/17 09:03 80 16 08/25/17 09:01 145/92 08/25/17 08:58 89 15 98 08/25/17 08:58 89 15 08/25/17 08:56 127/79 08/25/17 08:53 69 17 08/25/17 08:53 68 17 100 08/25/17 08:51 126/80 08/25/17 08:48 74 16 85 08/25/17 08:48 75 16 08/25/17 08:46 132/86 08/25/17 08:38 36.5 75 16 147/78 98 Oxymask 7 08/25/17 05:39 36.6 82 18 139/78 (98) 98 Room Air Notes Mental Status: alert / awake / arousable, participated in evaluation Pt Amnestic to Procedure: Yes Nausea / Vomiting: adequately controlled Pain: adequately controlled Airway Patency, RR, SpO2: stable & adequate BP & HR: stable & adequate Hydration State: stable & adequate Anesthetic Complications: no major complications apparent
== END 2017-08-25 10:03 | disposition home or self-care (01) ==
LOC: C.ACU 04:49
PROVIDERS: ATTEND Surgery
DX: I88.9 Nonspecific lymphadenitis, unspecified (principal); Z87.891 Personal history of nicotine dependence; I10 Essential (primary) hypertension; Z79.899 Other long term (current) drug therapy; Z90.89 Acquired absence of other organs; Z82.49 Family history of ischemic heart disease and other diseases of the circulatory system

== ENCOUNTER → 2017-11-22 | Outpatient (CLI) | payer OTHER ==
[~2017-11-22] MED LIST changes: +ULT/50 PO
--- NOTE | 2017-11-22 13:10 | DIAGNOSTIC IMAGING REPORT ---
CHEST 2 VIEWS ROUTINE CLINICAL HISTORY: D86.9 [id number], R07.81 COMPARISON STUDY: 08/25/2017 FINDINGS: The cardiac and mediastinal contours remain stable. There is decreased hilar and mediastinal adenopathy. There is no focal pulmonary consolidation. There are no pleural effusions. No pneumothorax is visualized.[ IMPRESSION: Decreasing adenopathy. No acute findings. Electronically signed by: Gentry Quiroga M.D. 11/22/2017 1:09 PM Dictated Date/Time: 11/22/2017 1:08 PM
--- NOTE | 2017-11-22 13:18 | DIAGNOSTIC IMAGING REPORT ---
R RIBS UNILATERAL MIN 2 VIEWS CLINICAL HISTORY: RT SIDED RIB PAIN COMPARISON STUDY: No previous studies for comparison. FINDINGS: There is no pneumothorax. No right-sided rib fractures are visualized. IMPRESSION: No evidence of pneumothorax. No right-sided rib fractures are visualized Electronically signed by: Gentry Quiroga M.D. 11/22/2017 1:17 PM Dictated Date/Time: 11/22/2017 1:16 PM
== END | disposition home or self-care (01) ==
LOC: C.RAD1850 11:51
PROVIDERS: ATTEND Internal Medicine Pulmonary Disease
DX: D86.9 Sarcoidosis, unspecified (principal); R07.81 Pleurodynia

== ENCOUNTER → 2018-02-21 | Outpatient (CLI) | payer OTHER ==
--- NOTE | 2018-02-21 12:05 | DIAGNOSTIC IMAGING REPORT ---
RIGHT FOOT 3 VIEWS CLINICAL HISTORY: Right foot injury. The patient stepped on nail. FINDINGS: 3 weightbearing views of the right foot are obtained. No prior studies are available for comparison at the time of dictation. The skeletal structures are well mineralized. No fracture is seen. The joint spaces of the foot are well-maintained. No radiodense foreign body is identified. Mild soft tissue swelling is noted along the lateral aspect of the foot. There is a tiny dorsal calcaneal enthesophyte. IMPRESSION: 1. There is no acute osseous abnormality identified. 2. Mild lateral soft tissue swelling is observed. 3. No radiodense foreign body is seen. Electronically signed by: Ritchie Franco M.D. 02/21/2018 12:04 PM Dictated Date/Time: 02/21/2018 11:57 AM
== END | disposition home or self-care (01) ==
LOC: C.RAD1850 09:31
PROVIDERS: ATTEND Family Medicine
DX: T14.8XXA Other injury of unspecified body region, initial encounter (principal); X58.XXXA Exposure to other specified factors, initial encounter